=== PATIENT | male | born 1960 | race Two or more races ===

== ENCOUNTER 2021-03-26 14:49 | Emergency (ER) | payer OTHER ==
[~2021-03-26] VITALS: Ht 182.9 cm; Wt 113.4 kg
[2021-03-26] MEDS ORDERED: MONODOX100 MG PO (19:05)
[2021-03-26] MEDS ORDERED: STOOL SOFTENER50 MG PO ×2 (19:06→19:08)
== END 2021-03-26 19:20 | disposition home or self-care (01) ==
LOC: ER 14:49

== ENCOUNTER 2021-03-29 12:54 | Emergency (ER) | payer OTHER ==
[~2021-03-29] VITALS: Ht 182.9 cm; Wt 113.4 kg
[~2021-03-29 12:54] MED LIST: MONODOX100 MG PO; STOOL SOFTENER50 MG PO
[2021-03-29] MEDS ORDERED: AZOR 10-40 MG1 EACH (13:23)
[2021-03-29] MEDS ORDERED: CRESTOR40 MG (13:23)
[2021-03-29] MEDS ORDERED: NUPERCAINAL56.7 GM RECTAL (18:42)
[2021-03-29] MEDS ORDERED: ANALPRAM HC 2.530 GM RECTAL (18:42)
[2021-03-29] MEDS ORDERED: DICLOFENAC SODI75 MG PO (18:42)
== END 2021-03-29 18:55 | disposition home or self-care (01) ==
LOC: ER 12:54
DX: K64.8 Other hemorrhoids (principal); I10 Essential (primary) hypertension

== ENCOUNTER 2021-07-13 05:53 | Day surgery (SDC) | payer OTHER ==
[~2021-07-13 05:53] MED LIST changes: +ANALPRAM HC 2.530 GM RECTAL; +AZOR 10-40 MG1 EACH; +CRESTOR40 MG; +DICLOFENAC SODI75 MG PO; +NUPERCAINAL56.7 GM RECTAL
[2021-07-13] MEDS ORDERED: RECTICARE30 GM TOP (08:01)
[2021-07-13] MEDS ORDERED: PERCOCET 5-3251 EACH PO (08:01)
== END 2021-07-13 13:45 | disposition home or self-care (01) ==
LOC: CIR.AMB 05:53
PROVIDERS: ATTEND Surgery
DX: K60.1 Chronic anal fissure (principal); Z20.822 Contact with and (suspected) exposure to COVID-19

== ENCOUNTER → 2022-03-12 | Emergency (ER) | payer OTHER ==
[~2022-03-12] VITALS: Ht 182.9 cm; Wt 106.6 kg
[~2022-03-12] MED LIST changes: +AMOX-CLAV 875-1 EACH PO; +PERCOCET 5-3251 EACH PO; +RECTICARE30 GM TOP
== END | disposition home or self-care (01) ==
LOC: ER 11:42
DX: S61.451A Open bite of right hand, initial encounter (principal); W54.0XXA Bitten by dog, initial encounter; Y93.89 Activity, other specified; Y92.89 Other specified places as the place of occurrence of the external cause; Y99.9 Unspecified external cause status; I10 Essential (primary) hypertension